=== PATIENT | female | born 1970 | race African-American/Black ===

== ENCOUNTER 2017-06-02 02:36 | Emergency (ER) | payer SELFPAY ==
[~2017-06-02] VITALS: Ht 165.1 cm; Wt 74.8 kg
[2017-06-02] MEDS ORDERED: HYDROCODONE/APAP 5-325MG TABLET PO ONE (03:15)
[2017-06-02] MEDS ORDERED: HYDROCODONE/APAP 5-325MG TABLET ONE (03:31)
[2017-06-02 03:40] LABS: CREATININE 0.9 mg/dL (0.6-1.3); POTASSIUM 3.3 mmol/L (3.5-5.1)
[2017-06-02 03:58] LABS: *URINE HCG, QUAL NEGATIVE (NEGATIVE)
[2017-06-02 04:04] LABS: EOSINOPHILS # (AUTO) 0.2 K/uL (0.0-0.7); EOSINOPHILS % (AUTO) 1.7 % (0.0-7.0); HEMATOCRIT 39.9 % (37-47); HEMOGLOBIN 13.3 G/DL (12.0-16.0); LYMPHOCYTES # (AUTO) 2.4 K/UL (0.8-4.8); LYMPHOCYTES % (AUTO) 25.6 % (20.5-51.5); MEAN CORPUSCULAR HEMOGLOBIN 28.6 UUG (27.0-31.0); MEAN CORPUSCULAR HGB CONC 33 g/dL (32.0-37.0); MEAN CORPUSCULAR VOLUME 85.7 FL (81.0-99.0); MONOCYTES # (AUTO) 0.6 K/UL (0.1-1.30); MONOCYTES % (AUTO) 6.1 % (0.0-11.0); NEUTROPHILS # (AUTO) 6.3 K/UL (1.8-8.9); NEUTROPHILS % (AUTO) 66.6 % (38.5-71.5); PLATELET COUNT (AUTO) 304 K/UL (150-450); RED BLOOD CELL COUNT(AUTO) 4.66 MIL/UL (4.2-5.4); WHITE BLOOD COUNT (AUTO) 9.5 K/UL (4.0-11.2)
--- NOTE | 2017-06-02 04:50 | NUR ---
Patient is resting comfortably in bed with eyes closed. ERMD spoke to patient regarding LP, patient refused. Patient wishes to sign out against medical advice.
--- NOTE | 2017-06-02 05:18 | NUR ---
Patient does not wish to proceed with medical care recommended by Dr. Garcia. Patient given information related to possible complications, up to and including , which could occur as a result of leaving the hospital at this time. Patient verbalizes understanding of risks involved due to leaving against medical advice. Patient has signed AMA form.
== END 2017-06-02 05:23 | disposition home or self-care (01) ==
LOC: ER 02:39
DX: G43.909 Migraine, unspecified, not intractable, without status migrainosus (principal)
CPT/HCPCS: 36415; 70450; 80048; 84703; 85025; 99285; A4663

== ENCOUNTER 2017-10-29 22:06 | Emergency (ER) | payer SELFPAY ==
[~2017-10-29] VITALS: Ht 165.1 cm; Wt 79.4 kg
--- NOTE | 2017-10-29 23:15 | NUR ---
TO ROOM 4A FOR ER EVAL
--- NOTE | 2017-10-29 23:17 | NUR ---
ERMD AT BEDSIDE EVALUATING PT
[2017-10-29] MEDS ORDERED: IBUPROFEN 800 MG TABLET ONE (23:25)
[2017-10-29] MEDS ORDERED: IBUPROFEN 800 MG TABLET PO ONE (23:30)
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
[2017-10-30 00:29] VITALS: BP 128/88
== END 2017-10-30 00:18 | disposition home or self-care (01) ==
LOC: ER 22:06
DX: S49.92XA Unspecified injury of left shoulder and upper arm, initial encounter (principal); V43.02XA Car driver injured in collision with other type car in nontraffic accident, initial encounter; Y93.89 Activity, other specified; Y92.410 Unspecified street and highway as the place of occurrence of the external cause; Y99.8 Other external cause status
CPT/HCPCS: A4663

== ENCOUNTER 2018-12-09 19:55 | Emergency (ER) | payer OTHER ==
[~2018-12-09] VITALS: Ht 165.1 cm; Wt 81.6 kg
[2018-12-09] MEDS ORDERED: KETOROLAC TROMETHAMINE 30 MG INJ IVP ONE (20:15)
[2018-12-09] MEDS ORDERED: ONDANSETRON IV *ER 4 MG/2 ML VIAL IV ONE (20:15)
[2018-12-09] MEDS ORDERED: IV NORMAL SALINE 1000 ML BAG IV ONE (20:15)
[2018-12-09] MEDS ORDERED: ONDANSETRON 4 MG/2 ML VIAL ONE (20:16)
[2018-12-09] MEDS ORDERED: KETOROLAC TROMETHAMINE 30 MG INJ ONE (20:16)
--- NOTE | 2018-12-09 20:32 | NUR ---
Patient ambulated with stable gait. A/Ox4. Patient came in for c/o n/v x1day. Patient 3 episodes of emesis just today. Respiratory even and unlabored, no cough no sob. No cardiovascular distress, skin warm to touch, and all pulses palpapble. Patient in bed at lowest position, sr upx2, call light within reach. Fall precautions implemented per protocol.
--- NOTE | 2018-12-09 21:01 | NUR ---
Patient discharged to home in stable conditon. Written and verbal after care instructions given. Patient verbalizes understanding of instructions. Patient ambulated with stable gait.
[2018-12-09 22:10] VITALS: BP 140/89
== END 2018-12-09 21:01 | disposition home or self-care (01) ==
LOC: ER 19:57
DX: B34.9 Viral infection, unspecified (principal)
CPT/HCPCS: 36415; 86403; 87070; 87400; 96361; 96374; 96375; 99283; J1885; J2405; A4663; J7030

== ENCOUNTER 2020-05-19 13:13 | Emergency (ER) | payer OTHER, SELFPAY ==
[~2020-05-19] VITALS: Ht 165.1 cm; Wt 81.6 kg
[2020-05-19] MEDS ORDERED: ACETAMINOPHEN ES 500 MG TABLET PO ONE (13:30)
[2020-05-19] MEDS ORDERED: ACETAMINOPHEN ES 500 MG TABLET ONE (13:34)
[2020-05-19] MEDS ORDERED: IV NORMAL SALINE 1000 ML BAG IV ONE (13:45)
[2020-05-19 14:47] VITALS: BP 129/69
== END 2020-05-19 14:48 | disposition home or self-care (01) ==
LOC: ER 13:13
DX: U07.1 COVID-19 (principal); Z87.11 Personal history of peptic ulcer disease; R19.7 Diarrhea, unspecified; R11.2 Nausea with vomiting, unspecified
CPT/HCPCS: 71045; 87400; 96360; 99284; U0003; A4663; A9150; J7030

== ENCOUNTER 2020-05-25 12:38 | Inpatient (IN) | payer SELFPAY ==
[~2020-05-25] VITALS: Ht 165.1 cm; Wt 77.1 kg
[2020-05-25] MEDS ORDERED: ACETAMINOPHEN 650 MG SUPP.RECT RC ONE (13:15)
[2020-05-25] MEDS ORDERED: IV NORMAL SALINE 1000 ML BAG IV ONE (13:15)
[2020-05-25 13:24] LABS: BASOPHILS % (AUTO) 0.3 % (0.0-2.0); HEMATOCRIT 41.2 % (31.2-41.9); HEMOGLOBIN 13.7 g/dL (10.9-14.3); LYMPHOCYTES # (AUTO) 1.5 K/uL (20.0-40.0); LYMPHOCYTES % (AUTO) 14.9 % (20.5-51.5); MEAN CORPUSCULAR HGB CONC 33 g/dL (32.3-35.6); MEAN CORPUSCULAR VOLUME 83.9 fL (75.5-95.3); MONOCYTES # (AUTO) 0.5 K/uL (2.0-10.0); MONOCYTES % (AUTO) 5.2 % (0.0-11.0); NEUTROPHILS # (AUTO) 7.8 K/uL (1.8-8.9); NEUTROPHILS % (AUTO) 79.6 % (38.5-71.5); PLATELET COUNT (AUTO) 237 K/uL (179-408); RED BLOOD CELL COUNT(AUTO) 4.91 MIL/uL (3.63-4.92); WHITE BLOOD COUNT (AUTO) 9.8 K/uL (3.8-11.8)
--- NOTE | 2020-05-25 13:39 | NUR ---
PT IS IN ROOM #2B. DR HUTTON EVALUATED THE PT.
[2020-05-25 13:46] LABS: CREATININE 0.8 mg/dL (0.6-1.3); POTASSIUM 3.3 mmol/L (3.5-5.1)
[2020-05-25 14:03] LABS: BILIRUBIN,TOTAL 0.3 mg/dL (0.2-1.0); TOTAL PROTEIN, SERUM 7.5 g/dL (6.4-8.2)
[2020-05-25] MEDS ORDERED: ALBUTEROL SULFATE 8 GM HFA.AER.AD IH PRN (15:15)
[2020-05-25] MEDS ORDERED: HYDROCODONE/APAP 5-325MG TABLET PO PRN (15:15)
[2020-05-25] MEDS ORDERED: DEXAMETHASONE 1 MG TABLET ONE (15:26)
[2020-05-25] MEDS ORDERED: DEXAMETHASONE 4 MG TABLET ONE (15:26)
[2020-05-25] MEDS ORDERED: AZITHROMYCIN 500MG/ D5W 250ML IVPB **ER PYXIS ONLY IV ONE (15:27)
[2020-05-25] MEDS ORDERED: ENOXAPARIN SODIUM 40 MG/0.4 ML DISP.SYRIN SQ ONE (15:27)
[2020-05-25] MEDS ORDERED: ONDANSETRON 4 MG/2 ML VIAL IV STA (15:41)
[2020-05-25] MEDS ORDERED: ONDANSETRON 4 MG/2 ML VIAL ONE (15:48)
[2020-05-25] MEDS: AZITHROMYCIN IV 500 MG in IV DEXTROSE 5% 250 ML IV SCH (15:58)
[2020-05-25] MEDS: DEXAMETHASONE 4 MG TABLET PO SCH (15:58)
[2020-05-25] MEDS ORDERED: ENOXAPARIN SODIUM 40 MG/0.4 ML DISP.SYRIN SQ SCH (16:00)
[2020-05-25] MEDS ORDERED: ENOXAPARIN SODIUM 40 MG/0.4 ML DISP.SYRIN SQ STA (16:01)
--- NOTE | 2020-05-25 16:30 | NUR ---
Received pt in RM 322 awake, AOx4, on RA with SOB and labored breathing. Applied O2 @ 2L with relief. IV on right hand 20g flushed and patent. On tele ST denied chest pain. Pt stated ambulated to bathroom and had 1 episode of diarrhea. Complained of feeling dehydrated, encouraged to drink water. Oriented to unit policy and room. Isolation precaution observed. Bed locked in lowest position with siderails 2x up, call light and phone within reach. Jaz WEINER UNDERWRITING CLERKS SUPERVISOR came in to check on patient and explained Remdesivir and convalescent plasma, pt stated to talk to her nurse friend. Will endorse
--- NOTE | 2020-05-25 16:33 | NUR ---
PT WAS TRANSFERED TO ROOM #322. REPORT WAS GIVEN TO PASTRY DECORATOR.
[2020-05-25 18:00] VITALS: BP 120/75
[2020-05-25] MEDS ORDERED: CEFTRIAXONE 1 G VIAL IM SCH (18:45)
--- NOTE | 2020-05-25 19:30 | NUR ---
RECEIVED PT IN NO ACUTE DISTRESS. PT AWAKE ,ALERT AND ORIENTEDX4. PT IV INTACT. PT HAS 2L OXYGEN VIA NASAL CANNULA.PT AWARE WE NEED TO COLLECT HER URINE AND SPUTUM SAMPLE. SAFETY AND COMFORT PROVIDED. WILL CONTINUE TO MONITOR.
[2020-05-25] MEDS: ACETAMINOPHEN 325 MG TABLET PO PRN (20:42)
[2020-05-25] MEDS: CEFTRIAXONE 1 G in IV DEXTROSE 5% 50 ML IV SCH (20:42)
[2020-05-25 20:57] VITALS: BP 137/71
[2020-05-26] VITALS: BP 130/68
[2020-05-26 00:12] LABS: *BILIRUBIN,URIN NEGATIVE (NEGATIVE); *BLOOD, URINE NEGATIVE (NEGATIVE); *CLARITY,URINE CLEAR (CLEAR); *COLOR,URINE YELLOW (YELLOW); *KETONES,URINE 2+ (NEGATIVE); *UROBILINOGEN,URINE 0.2 E.U./dl (NORMAL); LEUKOCYTE ESTERASE ,URINE NEGATIVE (NEGATIVE); NITRITE, URINE NEGATIVE (NEGATIVE); UGLUCOSE NEGATIVE (NEGATIVE)
[2020-05-26 04:00] VITALS: BP 123/76
--- NOTE | 2020-05-26 06:29 | NUR ---
PT SLEPT INTERMITTENTLY. PT STABLE .PT IN NO ACUTE DISTRESS. PRESCRIBED MEDICATION GIVEN AND PT TOLERATED IT WELL.PT ASKED FOR HER BLOOD SUAGR TO BE CHECKED. PT BLOOD SUGAR WAS 126. PT GIVEN TYLENOL 65OMG PRN AT 2042H FOR 100 DEGREE FAHRENHEIT AND AFTER TWO HOURS IT BECOME 98.9. PT AFEBRILE. VITAL SIGNS STABLE AND WITHIN NORMAL LIMIT. PT SPUTUM SAMPLE AND URINE SAMPLE SENT TO LAB. DR. MOON ORDERED REMDESIVIRX4 AND CONVALESCENT PLASMA. CALLED LAB TO GET THE FORM FOR THE PT. SAFETY AND COMFORT PROVIDED.ALL NEEDS ARE MET. WILL ENDORSE TO INCOMING NURSE FOR CONTINUITY OF CARE.
[2020-05-26 06:58] LABS: BASOPHILS % (AUTO) 0.1 % (0.0-2.0); HEMATOCRIT 38.5 % (31.2-41.9); HEMOGLOBIN 12.7 g/dL (10.9-14.3); LYMPHOCYTES # (AUTO) 1.3 K/uL (20.0-40.0); MEAN CORPUSCULAR HEMOGLOBIN 27.9 uug (24.7-32.8); MEAN CORPUSCULAR HGB CONC 33 g/dL (32.3-35.6); MEAN CORPUSCULAR VOLUME 84.9 fL (75.5-95.3); MONOCYTES # (AUTO) 0.6 K/uL (2.0-10.0); MONOCYTES % (AUTO) 8.2 % (0.0-11.0); NEUTROPHILS # (AUTO) 5.3 K/uL (1.8-8.9); NEUTROPHILS % (AUTO) 73.7 % (38.5-71.5); PLATELET COUNT (AUTO) 260 K/uL (179-408); RED BLOOD CELL COUNT(AUTO) 4.54 MIL/uL (3.63-4.92); WHITE BLOOD COUNT (AUTO) 7.2 K/uL (3.8-11.8)
--- NOTE | 2020-05-26 07:00 | NUR ---
Pharmacy called regarding order o Convalescent plasma and Remdesivir. Pharmacist said she will call DR. Ceballos to clarify the order.
[2020-05-26 07:01] LABS: CREATININE 0.9 mg/dL (0.6-1.3); MAGNESIUM 2.4 mg/dL (1.8-2.4); POTASSIUM 3.8 mmol/L (3.5-5.1)
[2020-05-26 07:30] LABS: THYROID STIMULATING HORMONE 0.205 mIU/mL (0.358-3.740)
--- NOTE | 2020-05-26 07:30 | NUR ---
Received patient resting in bed, no sign of distress noted at this time. Patient is on 3L of oxygen nasal cannula. Patient has a right hand 18 gauge hep lock. Safety precautions are in place with call light and belongings within reach. Will continue to monitor
[2020-05-26 08:26] LABS: BILIRUBIN,DIRECT 0.1 mg/dL (0.0-0.2); BILIRUBIN,TOTAL 0.2 mg/dL (0.2-1.0); TOTAL PROTEIN, SERUM 7.1 g/dL (6.4-8.2)
[2020-05-26] MEDS ORDERED: ENOXAPARIN SODIUM 40 MG/0.4 ML DISP.SYRIN SQ SCH (09:00)
[2020-05-26] MEDS ORDERED: REMDESIVIR (INVESTIGATIONAL) 100 MG in IV NORMAL SALINE 230 ML IV SCH ×4 (10:00)
[2020-05-26] MEDS ORDERED: REMDESIVIR (INVESTIGATIONAL) 200 MG in IV NORMAL SALINE 210 ML IV ONE (10:00)
--- NOTE | 2020-05-26 10:52 | NUR ---
Paperwork given to patient on Remdezivir and initial vitals taken prior to start of infusion. Patient vitals is 138/96 pulse rate 87 and O2 sat is 97% on 2L of oxygen. Will continue to monitor.
[2020-05-26 11:30] VITALS: BP 140/95
--- NOTE | 2020-05-26 12:00 | NUR ---
Vitals taken on patient after infusion, 141/93 with a heart rate of 98. Patient tolerated infusion of Remdezivir well. Will continue to monitor.
[2020-05-26 16:00] VITALS: BP 135/85
--- NOTE | 2020-05-26 16:20 | NUR ---
Faxed Convalescent plasma Forms to DR Pineda office [phone] confirmation faxed paper successful. Spoke with Huma TAVERAS from DR Pineda office confirmed that faxed received and still not signed by DR PINEDA. Awaiting fax back from office. Per huma pineda might not get to the forms today. Will need to f/u tomorrow.
[2020-05-26 17:07] VITALS: BP 140/95
[2020-05-26] MEDS: AZITHROMYCIN IV 500 MG in IV DEXTROSE 5% 250 ML IV SCH (17:34)
--- NOTE | 2020-05-26 19:55 | NUR ---
Patient is resting in bed, no sign of distress noted. Gave all medications as ordered. Safety precautions in place with call light and belongings within reach. Will endorse to oncoming nurse.
--- NOTE | 2020-05-26 20:08 | NUR ---
Patient in bed .ALOx4 with O2 inhalation at 2LPM via NC saturating well at 95%.C/o pain on RT hand IV site.Dc'd IV line and Inserted new Iv line on left hand using 22 g x 1 attempt with good blood return.Administered Iv ATB .No A/R noted.Patient ambulates to the bathroom.Called 's office to f/u regarding Convalescent plasma forms and his consent.No answer.Will continue to follow up in a.m.
[2020-05-26 20:43] VITALS: BP 140/76
[2020-05-26] MEDS: CEFTRIAXONE 1 G in IV DEXTROSE 5% 50 ML IV SCH (20:48)
[2020-05-26] MEDS: ACETAMINOPHEN 325 MG TABLET PO PRN (20:50)
[2020-05-26] MEDS: ENOXAPARIN SODIUM 40 MG/0.4 ML DISP.SYRIN SQ SCH (21:13)
[2020-05-27 00:30] VITALS: BP 122/68
[2020-05-27 04:00] VITALS: BP 142/82
[2020-05-27] MEDS: ACETAMINOPHEN 325 MG TABLET PO PRN (06:32)
--- NOTE | 2020-05-27 06:48 | NUR ---
Patient awake moaning with c/o headache and feeling nauseous, PRN medication given.Also noted with on and off non productive cough.HOB remained elevated saturating at 95 % with O2 at 2LPM via NC.Proper PPE strictly observed for covid.Call light and belongings with in reach.
[2020-05-27] MEDS: ONDANSETRON 4 MG/2 ML VIAL IV PRN ×2 (06:56→19:02)
[2020-05-27 07:43] LABS: BASOPHILS % (AUTO) 0.1 % (0.0-2.0); HEMATOCRIT 38.2 % (31.2-41.9); HEMOGLOBIN 12.6 g/dL (10.9-14.3); LYMPHOCYTES # (AUTO) 2.6 K/uL (20.0-40.0); LYMPHOCYTES % (AUTO) 34.2 % (20.5-51.5); MEAN CORPUSCULAR HGB CONC 33 g/dL (32.3-35.6); MEAN CORPUSCULAR VOLUME 85.1 fL (75.5-95.3); MONOCYTES % (AUTO) 13.4 % (0.0-11.0); NEUTROPHILS % (AUTO) 52.3 % (38.5-71.5); PLATELET COUNT (AUTO) 335 K/uL (179-408); RED BLOOD CELL COUNT(AUTO) 4.49 MIL/uL (3.63-4.92); WHITE BLOOD COUNT (AUTO) 7.6 K/uL (3.8-11.8)
[2020-05-27 07:49] LABS: BILIRUBIN,DIRECT 0.1 mg/dL (0.0-0.2); BILIRUBIN,TOTAL 0.2 mg/dL (0.2-1.0); CREATININE 0.9 mg/dL (0.6-1.3); POTASSIUM 3.1 mmol/L (3.5-5.1); TOTAL PROTEIN, SERUM 6.9 g/dL (6.4-8.2)
[2020-05-27] MEDS: REMDESIVIR (INVESTIGATIONAL) 100 MG in IV NORMAL SALINE 230 ML IV SCH (10:30)
[2020-05-27] MEDS: DEXAMETHASONE 4 MG TABLET PO SCH (10:30)
[2020-05-27] MEDS: POTASSIUM CHLORIDE 20 MEQ TAB.PRT.SR PO SCH ×2 (10:30→10:31)
[2020-05-27 12:01] VITALS: BP 134/82
[2020-05-27 16:58] VITALS: BP 142/90
[2020-05-27] MEDS ORDERED: AZITHROMYCIN IV 500 MG in IV DEXTROSE 5% 250 ML IV SCH (17:00)
[2020-05-27] MEDS ORDERED: AZITHROMYCIN 250 MG TABLET PO SCH (17:00)
--- NOTE | 2020-05-27 18:56 | NUR ---
patient calm and comfortable through out shift with no acute signs of distress; patient with stable vital signs ; patient medication compliant ;patient will continue to be monitored ; report given to oncoming shift.
[2020-05-27 20:12] VITALS: BP 129/76
[2020-05-27] MEDS: CEFTRIAXONE 1 G in IV DEXTROSE 5% 50 ML IV SCH (21:15)
[2020-05-27] MEDS: ENOXAPARIN SODIUM 40 MG/0.4 ML DISP.SYRIN SQ SCH (21:50)
--- NOTE | 2020-05-27 22:00 | NUR ---
Patient awake, alert, and verbally responsive. NO s/s of acute distress noted. Pt on RA and denies SOB. Pt c/o nausea and vomiting, one instance of emesis, Notified Wilstein COAL GRADER and Reglan was ordered. Will administer. Pt tolerated IV abx well. Patient independent and ambulates to the bathroom. Left hand IV patent and intact. Safety measures and airborne isolation in place. Will continue to monitor.
[2020-05-27] MEDS: METOCLOPRAMIDE HCL 10 MG/2 ML VIAL IV PRN (23:04)
[2020-05-28 00:20] VITALS: BP 144/88
[2020-05-28 04:24] VITALS: BP 133/76
--- NOTE | 2020-05-28 06:45 | NUR ---
Patient resting in bed. No s/s of acute distress noted. Pt on RA O2 saturation 98%, denies SOB. telemetry monitor on reading sinus rhythm. Pt denies n/v at this time. Left hand IV patent and intact. All needs were met and attended to. Safety measures in place and will endorse to oncoming staff.
[2020-05-28 06:49] LABS: BASOPHILS % (AUTO) 0.2 % (0.0-2.0); EOSINOPHILS % (AUTO) 0.1 % (0.0-7.0); HEMATOCRIT 39.2 % (31.2-41.9); HEMOGLOBIN 13.1 g/dL (10.9-14.3); LYMPHOCYTES # (AUTO) 2.1 K/uL (20.0-40.0); LYMPHOCYTES % (AUTO) 33.1 % (20.5-51.5); MEAN CORPUSCULAR HEMOGLOBIN 28.2 uug (24.7-32.8); MEAN CORPUSCULAR HGB CONC 33 g/dL (32.3-35.6); MEAN CORPUSCULAR VOLUME 84.6 fL (75.5-95.3); MONOCYTES # (AUTO) 0.9 K/uL (2.0-10.0); MONOCYTES % (AUTO) 14.9 % (0.0-11.0); NEUTROPHILS # (AUTO) 3.2 K/uL (1.8-8.9); NEUTROPHILS % (AUTO) 51.7 % (38.5-71.5); PLATELET COUNT (AUTO) 395 K/uL (179-408); RED BLOOD CELL COUNT(AUTO) 4.64 MIL/uL (3.63-4.92); WHITE BLOOD COUNT (AUTO) 6.2 K/uL (3.8-11.8)
[2020-05-28 06:57] LABS: BILIRUBIN,DIRECT 0.1 mg/dL (0.0-0.2); BILIRUBIN,TOTAL 0.3 mg/dL (0.2-1.0); CREATININE 0.7 mg/dL (0.6-1.3); POTASSIUM 3.2 mmol/L (3.5-5.1); TOTAL PROTEIN, SERUM 6.9 g/dL (6.4-8.2)
--- NOTE | 2020-05-28 08:00 | NUR ---
Received patient in bed, awake, alert and verbally responsive. No signs of distress noted. No SOB. No complain of Pain or discomfort noted. Afebrile. No Nausea/Vomiting noted. kept clean and comfortable. Will continue to monitor.
[2020-05-28] MEDS: DEXAMETHASONE 4 MG TABLET PO SCH (08:51)
[2020-05-28] MEDS: REMDESIVIR (INVESTIGATIONAL) 100 MG in IV NORMAL SALINE 230 ML IV SCH (10:48)
[2020-05-28 11:00] VITALS: BP 112/71
[2020-05-28] MEDS ORDERED: POTASSIUM CHLORIDE 20 MEQ TAB.PRT.SR PO ONE (11:30)
--- NOTE | 2020-05-28 12:33 | NUR ---
Completed Remdesevir IV. No ASE noted. Afebrile. On Room Air, No SOB noted. Will continue to monitor.
[2020-05-28 16:09] VITALS: BP 138/87
--- NOTE | 2020-05-28 18:21 | NUR ---
Patient in bed, awake, alert and verbally responsive. On Room air sat 94%. No signs of distress noted. N complain of SOB. No complain of Pain or discomfort. All due medications given as ordered. Kept clean and comfortable. Will endorse to Oncoming Nurse.
--- NOTE | 2020-05-28 18:52 | NUR ---
Covid19 PCR collected and send to lab.
--- NOTE | 2020-05-28 19:30 | NUR ---
Pt in bed, awake. Denies any acute distress or pain. V/S stable on room air. Denies SOB. Denies N/V. LH 22G IV is intact. Safety measures in place. Call light within reach. Will continue with the plan of care.
[2020-05-28 20:16] VITALS: BP 142/87
[2020-05-28] MEDS: ENOXAPARIN SODIUM 40 MG/0.4 ML DISP.SYRIN SQ SCH (20:46)
[2020-05-29 00:18] VITALS: BP 130/67
[2020-05-29] MEDS: METOCLOPRAMIDE HCL 10 MG/2 ML VIAL IV PRN (03:54)
[2020-05-29 04:18] VITALS: BP 143/85
--- NOTE | 2020-05-29 06:44 | NUR ---
Pt slept intermittently through the night. Denies any acute distress or pain. Denies SOB. V/S stable on room air. NSR 74 on tele monitor. Comfort care and needs attended. Isolation precaution maintained. Safety measures in place. Call light within reach. Will endorse to the oncoming nurse accordingly.
[2020-05-29 07:49] LABS: BASOPHILS % (AUTO) 0.1 % (0.0-2.0); HEMATOCRIT 39.3 % (31.2-41.9); LYMPHOCYTES # (AUTO) 1.9 K/uL (20.0-40.0); LYMPHOCYTES % (AUTO) 22.2 % (20.5-51.5); MEAN CORPUSCULAR HEMOGLOBIN 27.9 uug (24.7-32.8); MEAN CORPUSCULAR HGB CONC 33 g/dL (32.3-35.6); MONOCYTES # (AUTO) 1.4 K/uL (2.0-10.0); MONOCYTES % (AUTO) 16.2 % (0.0-11.0); NEUTROPHILS # (AUTO) 5.2 K/uL (1.8-8.9); NEUTROPHILS % (AUTO) 61.5 % (38.5-71.5); PLATELET COUNT (AUTO) 470 K/uL (179-408); RED BLOOD CELL COUNT(AUTO) 4.67 MIL/uL (3.63-4.92); WHITE BLOOD COUNT (AUTO) 8.4 K/uL (3.8-11.8)
[2020-05-29 07:55] LABS: BILIRUBIN,DIRECT 0.1 mg/dL (0.0-0.2); BILIRUBIN,TOTAL 0.3 mg/dL (0.2-1.0); CREATININE 0.7 mg/dL (0.6-1.3); POTASSIUM 3.4 mmol/L (3.5-5.1); TOTAL PROTEIN, SERUM 6.7 g/dL (6.4-8.2)
[2020-05-29 08:50] LABS: LYMPHOCYTES % (MANUAL) 24 % (20-40); MONOCYTES % (MANUAL) 16 % (2-10); NEUTROPHILS % (MANUAL) 60 % (42-75)
[2020-05-29] MEDS: DEXAMETHASONE 4 MG TABLET PO SCH (09:22)
[2020-05-29] MEDS: REMDESIVIR (INVESTIGATIONAL) 100 MG in IV NORMAL SALINE 230 ML IV SCH (10:01)
--- NOTE | 2020-05-29 10:21 | NUR ---
Received patient in room, patient is AAO X 4, NO acute distress noted, patient on RA and tolerating well. Non-productive cough noted at times. Vital signs stable for patient. Afebrile. Sinus rhythm. Denies any pain. Due medications administered and tolerated. IV line on left hand intact and patent. Remdesivir IV administered as scheduled, tolerated well. Patient is BRP. Needs attended, call light left within easy reach and will continue with care.
[2020-05-29] MEDS ORDERED: POTASSIUM CHLORIDE 20 MEQ TAB.PRT.SR PO ONE (11:00)
[2020-05-29 12:00] VITALS: BP 136/85
--- NOTE | 2020-05-29 14:35 | NUR ---
NO complains of nausea/ vomiting, patient in room and resting comfortably at this time.
[2020-05-29 16:00] VITALS: BP 142/88
--- NOTE | 2020-05-29 18:19 | NUR ---
Patient in stable condition, vital signs stable. NO complains of discomfort or pain at this time. Patient ate dinner; stating " I feel much better". Needs attended, call light left at bed side and will continue with care.
--- NOTE | 2020-05-29 19:30 | NUR ---
End of shift report given to pm nurse.
--- NOTE | 2020-05-29 19:30 | NUR ---
Pt in bed, watching TV. Denies any acute distress or pain. V/S stable on room air. On isolation precaution. Safety measures in place. Call light within reach. Will continue with the plan of care.
[2020-05-29 20:20] VITALS: BP 130/80
[2020-05-29] MEDS: ENOXAPARIN SODIUM 40 MG/0.4 ML DISP.SYRIN SQ SCH (20:35)
[2020-05-30] VITALS (8 sets, daily range): BP systolic 133–147; BP diastolic 79–97
--- NOTE | 2020-05-30 06:35 | NUR ---
Pt remained stable through the shift. Denies any acute distress or pain. Comfort care and needs attended. Isolation precaution maintained. Safety measures in place. Call light within reach. Will endorse to oncoming nurse.
[2020-05-30 07:22] LABS: BASOPHILS % (AUTO) 0.2 % (0.0-2.0); HEMATOCRIT 38.5 % (31.2-41.9); HEMOGLOBIN 12.8 g/dL (10.9-14.3); LYMPHOCYTES # (AUTO) 2.4 K/uL (20.0-40.0); LYMPHOCYTES % (AUTO) 21.9 % (20.5-51.5); MEAN CORPUSCULAR HGB CONC 33 g/dL (32.3-35.6); MEAN CORPUSCULAR VOLUME 84.3 fL (75.5-95.3); MONOCYTES # (AUTO) 1.1 K/uL (2.0-10.0); MONOCYTES % (AUTO) 9.5 % (0.0-11.0); NEUTROPHILS # (AUTO) 7.6 K/uL (1.8-8.9); NEUTROPHILS % (AUTO) 68.4 % (38.5-71.5); PLATELET COUNT (AUTO) 505 K/uL (179-408); RED BLOOD CELL COUNT(AUTO) 4.57 MIL/uL (3.63-4.92); WHITE BLOOD COUNT (AUTO) 11.1 K/uL (3.8-11.8)
[2020-05-30 07:27] LABS: BILIRUBIN,DIRECT 0.1 mg/dL (0.0-0.2); BILIRUBIN,TOTAL 0.3 mg/dL (0.2-1.0); CREATININE 0.7 mg/dL (0.6-1.3); POTASSIUM 3.7 mmol/L (3.5-5.1); TOTAL PROTEIN, SERUM 6.4 g/dL (6.4-8.2)
[2020-05-30] MEDS: DEXAMETHASONE 4 MG TABLET PO SCH (08:22)
[2020-05-30] MEDS: REMDESIVIR (INVESTIGATIONAL) 100 MG in IV NORMAL SALINE 230 ML IV SCH (11:02)
--- NOTE | 2020-05-30 11:02 | NUR ---
PATIENT STARTED ON REMDEZIVIR ORDERED VITALS CHECKED AND RECORDED AND WILL CONTINUE TO OBSERVE.
--- NOTE | 2020-05-30 12:05 | NUR ---
REMDEZIVIR COMPLETED ORDERED WITH NO ADVERSE OR ALLERGIC REACTIONS AT THIS TIME AFEBRILE EATING HER LUNCH AND WATCHING TV AT THIS TIME
--- NOTE | 2020-05-30 16:18 | NUR ---
PATIENT IS RESTING IN BED AWAKE ALERT AND ORIENTED DENIES PAIN OR DISCOMFORTS DENIES SHORTNESS OF BREATH NO COUGH NOT IN DISTRESS AT THIS TIME.
[2020-05-30] MEDS: ENOXAPARIN SODIUM 40 MG/0.4 ML DISP.SYRIN SQ SCH (21:30)
[2020-05-31] VITALS: BP 132/78
[2020-05-31 05:00] VITALS: BP 136/82
[2020-05-31 07:04] LABS: BILIRUBIN,DIRECT 0.1 mg/dL (0.0-0.2); BILIRUBIN,TOTAL 0.4 mg/dL (0.2-1.0); CREATININE 0.8 mg/dL (0.6-1.3); POTASSIUM 3.7 mmol/L (3.5-5.1); TOTAL PROTEIN, SERUM 6.5 g/dL (6.4-8.2)
[2020-05-31 07:26] LABS: BASOPHILS % (AUTO) 0.1 % (0.0-2.0); HEMATOCRIT 37.9 % (31.2-41.9); HEMOGLOBIN 12.4 g/dL (10.9-14.3); LYMPHOCYTES # (AUTO) 2.4 K/uL (20.0-40.0); LYMPHOCYTES % (AUTO) 17.9 % (20.5-51.5); MEAN CORPUSCULAR HEMOGLOBIN 27.5 uug (24.7-32.8); MEAN CORPUSCULAR HGB CONC 33 g/dL (32.3-35.6); MEAN CORPUSCULAR VOLUME 84.2 fL (75.5-95.3); MONOCYTES # (AUTO) 1.4 K/uL (2.0-10.0); MONOCYTES % (AUTO) 10.6 % (0.0-11.0); NEUTROPHILS # (AUTO) 9.7 K/uL (1.8-8.9); NEUTROPHILS % (AUTO) 71.4 % (38.5-71.5); PLATELET COUNT (AUTO) 547 K/uL (179-408); RED BLOOD CELL COUNT(AUTO) 4.51 MIL/uL (3.63-4.92); WHITE BLOOD COUNT (AUTO) 13.6 K/uL (3.8-11.8)
[2020-05-31] MEDS: DEXAMETHASONE 4 MG TABLET PO SCH (08:04)
[2020-05-31] MEDS ORDERED: DEXA4TAB2 PO (08:09)
[2020-05-31] MEDS ORDERED: ONDA4TAB5 PO (08:11)
--- NOTE | 2020-05-31 08:15 | NUR ---
PATIENT SEEN AND EXAMINED BY DR CHAMPAGNE WITH ORDER TO DISCHARGE PATIENT HOME TODAY PATIENT AWARE AND STATED THAT HER SON [employer] WILL BE ABLE TO PICK HER UP ABOUT 1100 TODAY
[2020-05-31] MEDS ORDERED: METO-295 PO (08:16)
[2020-05-31 12:00] VITALS: BP 149/90
--- NOTE | 2020-05-31 13:15 | NUR ---
PATIENT DISCHARGED PICKED UP BY HER MOTHER INSTEAD OF HER SON IN SATISFACTORY CONDITION WITH DISCHARGE INSTRUCTIONS AND ALL OF HER PERSONAL BELONGINGS SHE WAS INSTRUCTED TO QUARANTINE FOR 10-14 DAYS AND TO RECHECK SELF FOR COVID VIRUS IN 7 DAYS.SHE MUST WEAR AN N95 MASK UNTIL SHE IS NEGATIVE THEN A SIMPLE MASK WILL THEN BE OKAY AN N95 MASK WAS PROVIDED TO HER UPON DISCHARGE.SHE WILL ALSO NEED TO FOLLOW UP WITH HER PRIMARY DOCTOR AND PULMONARY NEEDED.HER MEDICATIONS WAS ALSO ELECTRONICALLY SENT TO HER PERSONAL PHARMACY SHE WAS ALSO INSTRUCTED TO GET A SIMPLE SAT DEVICE AND CHECK HER SATS TO ENSURE THAT IT IS WNL AND IF IT WAS NOT TO SEEK IMMEDIATE MEDICAL ATTENTION AND SHE EXPRESSED UNDERSTANDING.
== END 2020-05-31 13:15 | disposition home or self-care (01) | DRG 871 ==
LOC: ER 12:38 → TELE3 15:25
PROVIDERS: ATTEND Family Medicine
DX: A41.89 Other specified sepsis (principal); U07.1 COVID-19; J12.89 Other viral pneumonia; J96.01 Acute respiratory failure with hypoxia; J15.9 Unspecified bacterial pneumonia; E44.0 Moderate protein-calorie malnutrition; R65.20 Severe sepsis without septic shock; E87.6 Hypokalemia; K29.70 Gastritis, unspecified, without bleeding; G43.909 Migraine, unspecified, not intractable, without status migrainosus; E88.09 Other disorders of plasma-protein metabolism, not elsewhere classified; K27.9 Peptic ulcer, site unspecified, unspecified as acute or chronic, without hemorrhage or perforation
CPT/HCPCS: 36415; 70030-TC; 71045; 83605; 83615; 83735; 84100; 84443; 85025; 85610; 85730; 86140; 86900; 86901; 87040; 87070; 87086; 93005; A4663; G0378; J0456; J0696; J1650; J2405; J2765; J3535; J7030; J7040; J7050; J7060; J8540; U0003

== ENCOUNTER 2021-08-13 09:51 | Emergency (ER) | payer SELFPAY ==
[~2021-08-13] VITALS: Ht 165.1 cm; Wt 68.0 kg
[~2021-08-13 09:51] MED LIST: DEXA4TAB2 PO; METO-295 PO
--- NOTE | 2021-08-13 11:20 | NUR ---
PATIENT WAS MSE BY DR VU IN ROOM 05A.
[2021-08-13 11:49] LABS: HEMATOCRIT 42.9 % (31.2-41.9); MEAN CORPUSCULAR HEMOGLOBIN 28.5 uug (24.7-32.8); MEAN CORPUSCULAR VOLUME 86.9 fL (75.5-95.3); PLATELET COUNT (AUTO) 336 K/uL (179-408)
[2021-08-13 11:50] LABS: CREATININE 0.9 mg/dL (0.6-1.3); POTASSIUM 3.7 mmol/L (3.5-5.1)
[2021-08-13 12:03] LABS: BILIRUBIN,DIRECT 0.1 mg/dL (0.0-0.2); BILIRUBIN,TOTAL 0.3 mg/dL (0.2-1.0); TOTAL PROTEIN, SERUM 7.7 g/dL (6.4-8.2)
[2021-08-13 12:09] LABS: FERRITIN 182 ng/mL (8-252)
[2021-08-13 13:06] LABS: LACTATE DEHYDROGENASE 182 U/L (81-234)
[2021-08-13] MEDS ORDERED: IV NORMAL SALINE 1000 ML BAG IV ONE ×2 (13:15→18:00)
[2021-08-13 13:52] LABS: *BILIRUBIN,URIN NEGATIVE (NEGATIVE); *BLOOD, URINE NEGATIVE (NEGATIVE); *CLARITY,URINE CLEAR (CLEAR); *COLOR,URINE YELLOW (YELLOW); *KETONES,URINE 1+ (NEGATIVE); *UROBILINOGEN,URINE 0.2 E.U./dl (NORMAL); LEUKOCYTE ESTERASE ,URINE NEGATIVE (NEGATIVE); NITRITE, URINE NEGATIVE (NEGATIVE); PH,URINE 8.5 (5.0-8.0); UGLUCOSE NEGATIVE (NEGATIVE)
[2021-08-13] MEDS ORDERED: GUAI5SYR4 PO (14:15)
--- NOTE | 2021-08-13 17:00 | NUR ---
Patient is resting comfortably in bed with eyes closed
[2021-08-13] MEDS ORDERED: ONDANSETRON 4 MG/2 ML VIAL IV ONE (18:00)
[2021-08-13] MEDS ORDERED: MORPHINE SULFATE 4 MG/1 ML DISP.SYRIN IV ONE (18:00)
[2021-08-13] MEDS ORDERED: MORPHINE SULFATE 4 MG/1 ML DISP.SYRIN ONE (18:14)
[2021-08-13] MEDS ORDERED: ONDANSETRON 4 MG/2 ML VIAL ONE (18:14)
[2021-08-13] MEDS ORDERED: ACETAMINOPHEN ES 500 MG TABLET PO ONE (20:45)
[2021-08-13] MEDS ORDERED: ACETAMINOPHEN ES 500 MG TABLET ONE (21:01)
--- NOTE | 2021-08-13 23:59 | NUR ---
IV removed. Catheter intact and site benign. Pressure and 4x4 gauze applied to site. No bleeding noted.
--- NOTE | 2021-08-14 00:07 | NUR ---
Patient discharged to home in stable condition. Written and verbal after care instructions given. Patient verbalizes understanding of instructions. Stressed follow up or return to ER for worsening s/s.
[2021-08-14 00:08] VITALS: BP 149/94
== END 2021-08-14 00:09 | disposition home or self-care (01) ==
LOC: ER 09:51
DX: U07.1 COVID-19 (principal); E86.0 Dehydration; Z86.16 Personal history of COVID-19; Z87.11 Personal history of peptic ulcer disease; R00.0 Tachycardia, unspecified; Z86.61 Personal history of infections of the central nervous system; R03.0 Elevated blood-pressure reading, without diagnosis of hypertension
CPT/HCPCS: 36415; 71045; 80048; 80076; 81003; 82728; 83605 ×2; 83615; 83880; 84145; 84443; 84484; 85025; 85379; 87040 ×2; 87086; 87400; 87426; 93005; 96361; 96374; 96375; 99285; J2270; J2405; U0003; 70030-TC; A4663; A9150; J7030; J7050